=== PATIENT | male | born 1990 | race Caucasian/White ===

== ENCOUNTER 2018-12-24 09:39 | Emergency (ER) | payer MEDICAID, SELFPAY ==
--- NOTE | 2018-12-24 10:25 | PC.NURSE ---
Pt left prior to triage. Visualized upon entry to ED, No acute distress.
== END 2018-12-24 10:00 | disposition left against medical advice (07) ==
PROVIDERS: Emergency Provider Emergency Medicine
DX: Z53.21 Procedure and treatment not carried out due to patient leaving prior to being seen by health care provider (principal)